=== PATIENT | female | born 1990 ===

== ENCOUNTER 2021-04-06 21:38 | Emergency (ER) | payer MEDICAID, SELFPAY ==
[~2021-04-06 21:38] MED LIST: Iopamidol 370 76% 100 ML VIAL ONE
[2021-04-06] MEDS ORDERED: Metoclopramide HCl 10 MG/2 ML VIAL ONE (21:52)
[2021-04-06] MEDS ORDERED: Ketorolac Tromethamine 30 MG/ML VIAL ONE (21:52)
[2021-04-06 22:25] LABS: Pregs Control Background? CLEAR/WHITE (CLR/WHITE); Pregs Control Bar Appear? YES (CONTROL BAR)
[2021-04-06 22:28] LABS: BHCG - Serum Negative (NEGATIVE)
[2021-04-06 22:39] LABS: ALT (SGPT) 11 U/L (8-55); AST (SGOT) 12 U/L (5-34); Albumin 3.6 g/dL (3.5-5.0); Alkaline Phosphatase 63 U/L (40-110); Anion Gap 18 mmol/L (10-20); BUN (Urea Nitrogen) 8 mg/dL (7.0-18.7); Bilirubin, Total 0.9 mg/dL (0.2-1.2); Calc. Creatinine Clearance 0 mL/min (70-130); Calcium 8.2 mg/dL (7.8-10.44); Carbon Dioxide 21 mmol/L (22-29); Chloride 106 mmol/L (98-107); Glucose 175 mg/dL (70-105); Lipase 21 U/L (8-78); Potassium 3.7 mmol/L (3.5-5.1); Protein, Total 6.6 g/dL (6.0-8.3); Sodium 141 mmol/L (136-145)
[2021-04-06 22:47] LABS: #Lymphocytes 0.5 thou/uL (1.20-3.40); #Monocytes 0.7 thou/uL (0.11-0.59); #Neutrophils 14.7 thou/uL (1.40-6.50); %Basophils 0.3 % (0.0-1.0); %Monocytes 4.3 % (0.0-10.0); %Neutrophils 92.4 % (42.0-75.0); Hemoglobin 12.9 g/dL (12.0-16.0); Mean Corpuscular HGB CONC 34.5 g/dL (32.0-36.0); Mean Corpuscular Hemoglobin 31.8 pg (27.0-31.0); Mean Corpuscular Volume 92.3 fL (78.0-98.0); Platelet Count 213 thou/uL (130-400); RBC Distribution Width 13.3 % (11.5-14.5); Red Blood Cell (RBC) Count 4.06 mill/uL (4.20-5.40)
[2021-04-06] MEDS ORDERED: Pantoprazole 40 MG VIAL ONE (23:06)
[2021-04-06 23:18] LABS: Bilirubin Small (Negative); Blood, Urine Small (Negative); Clarity Clear (Clear); Glucose, Urine (Dipstick) 100 mg/dL (Negative); Ketone, Urine > or equal to 80 mg/dL (Negative); Leukocyte Trace (Negative); Nitrite Negative (Negative); Protein, Urine (Dipstick) 30 mg/dL (Neg-Trace); Specific Gravity, Urine 1.025 (1.005-1.030); Urobilinogen 0.2 mg/dL (Less than 2)
[2021-04-06 23:24] LABS: Bacteria/HPF 1+ HPF (None Seen); Mucous/LPF 2+ LPF (<2+); Trichomonas/HPF None Seen HPF (None Seen); Yeast-Budding None Seen HPF (None Seen); Yeast-Hyphae None Seen HPF (None Seen)
== END 2021-04-06 23:50 | disposition home or self-care (01) ==
LOC: BURERS 21:38
DX: N12 Tubulo-interstitial nephritis, not specified as acute or chronic (principal); R94.31 Abnormal electrocardiogram [ECG] [EKG]; R19.7 Diarrhea, unspecified
CPT/HCPCS: 36415; 74177; 80053; 81003; 81015; 83690; 84703; 85025; 87086; 93005; 94760; 96365; 96366; 96367; 96375; C9113; J1885; J2765; Q9967